=== PATIENT | male | born 1970 | race Caucasian/White ===

== ENCOUNTER 2019-02-15 07:15 | Emergency (ER) | payer OTHER ==
[2019-02-15] MEDS ORDERED: Ibuprofen 800 MG TAB ONE (07:51)
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
== END 2019-02-15 08:30 | disposition home or self-care (01) ==
LOC: MADERS 07:15
DX: S41.012A Laceration without foreign body of left shoulder, initial encounter (principal); S01.312A Laceration without foreign body of left ear, initial encounter; S20.212A Contusion of left front wall of thorax, initial encounter; S60.511A Abrasion of right hand, initial encounter; B20 Human immunodeficiency virus [HIV] disease; V49.9XXA Car occupant (driver) (passenger) injured in unspecified traffic accident, initial encounter
CPT/HCPCS: 12011